=== PATIENT | female | born 2000 | race African-American/Black ===

== ENCOUNTER 2023-02-21 20:46 | Emergency (ER) | payer MEDICAID, OTHER ==
[~2023-02-21] VITALS: Ht 160 cm; Wt 56.3 kg
[2023-02-22 01:35] VITALS: BP 126/84
== END 2023-02-22 01:52 | disposition home or self-care (01) ==
LOC: ER 20:46
DX: M79.641 Pain in right hand (principal); W18.39XA Other fall on same level, initial encounter; Y93.67 Activity, basketball; Y92.89 Other specified places as the place of occurrence of the external cause; Y99.8 Other external cause status
CPT/HCPCS: 29125; 73110; 73130

== ENCOUNTER 2023-03-22 05:59 | Emergency (ER) | payer MEDICAID ==
[~2023-03-22] VITALS: Ht 160 cm; Wt 54.5 kg
[2023-03-22 07:33] VITALS: BP 114/87
[2023-03-22] MEDS ORDERED: IBUPROFEN 600 MG TAB PO ONE (08:15)
[2023-03-22] MEDS ORDERED: IBUP600T27 PO (08:28)
== END 2023-03-22 08:34 | disposition home or self-care (01) ==
LOC: ER 05:59
DX: S52.501A Unspecified fracture of the lower end of right radius, initial encounter for closed fracture (principal); W18.39XA Other fall on same level, initial encounter; Y93.89 Activity, other specified; Y92.89 Other specified places as the place of occurrence of the external cause; Y99.8 Other external cause status
CPT/HCPCS: 29125; 73110; 73130

== ENCOUNTER 2024-05-30 14:48 | Emergency (ER) | payer MEDICAID ==
[~2024-05-30] VITALS: Ht 160 cm; Wt 61.8 kg
[~2024-05-30 14:48] MED LIST: IBUP-1454 PO
[2024-05-30 16:00] VITALS: BP 112/71; PULSE 78; RESP 16; TEMP 97.4; O2SAT 97
[2024-05-30] MEDS ORDERED: NAPR-746 PO (16:18)
== END 2024-05-30 16:45 | disposition home or self-care (01) ==
LOC: ER 14:48
DX: S93.402A Sprain of unspecified ligament of left ankle, initial encounter (principal); X50.1XXA Overexertion from prolonged static or awkward postures, initial encounter; Y93.67 Activity, basketball; Y92.89 Other specified places as the place of occurrence of the external cause; Y99.8 Other external cause status
CPT/HCPCS: 73610